=== PATIENT | female | born 1960 | race Caucasian/White ===

== ENCOUNTER 2020-05-22 13:06 | Outpatient (REF) | payer OTHER, SELFPAY ==
--- NOTE | 2020-05-22 13:07 | XR_ITS ---
EXAMINATION: XR WRIST, LEFT CLINICAL INFORMATION: Follow-up fracture COMPARISON: Previous x-rays most recent October 2018 TECHNIQUE: 3 of the left wrist. FINDINGS: There is a volar plate and screws in the left distal radius. Distal radius fracture line is no longer seen. There is a well-corticated ossification adjacent to the ulnar styloid that is new. The bones are osteopenic. XR/XR wrist LT min 3V IMPRESSION: Healed left distal radius fracture.
== END 2020-05-22 13:07 | disposition home or self-care (01) ==
LOC: HO.HOSX 13:06
PROVIDERS: Visit Provider Orthopaedic Surgery
DX: M65.319 Trigger thumb, unspecified thumb (principal); Z98.890 Other specified postprocedural states
CPT/HCPCS: 73110; 99212

== ENCOUNTER → 2020-06-14 11:35 | Outpatient (BNVA) | payer OTHER, SELFPAY | PROVIDERS: Visit Provider Orthopaedic Surgery | DX: S66.812D Strain of other specified muscles, fascia and tendons at wrist and hand level, left hand, subsequent encounter (principal) | CPT/HCPCS: 99202 ==

== ENCOUNTER 2020-07-25 14:31 | Outpatient (REF) | payer OTHER, SELFPAY ==
--- NOTE | 2020-07-25 14:35 | US_ITS ---
EXAMINATION: US NON-VASCULAR LEFT HAND CLINICAL INFORMATION: Status post ORIF distal radial fracture. Unable to move PIP joint left thumb since surgery. COMPARISON: Left hand x-ray 11/08/2018 and 05/22/2020. TECHNIQUE: Non-vascular limited ultrasound imaging of the left flexor pollicis longus was performed from the wrist to the insertion of the tendon along the proximal phalanx, proximal end 1st digit. FINDINGS: The flexor pollicis tendon is normal thickness, signal and normal movement extending from distal forearm above the plate to the PIP joint on flexion of the 1st MCP joint. Imaging of the tendon at the insertion of the proximal end proximal phalanx 1st digit, there is hypoechoic normal signal. Just proximal to the insertion, there is a very echogenic focus within the central tendon on axial image 10/09. Whether this represents a tendinous dystrophic calcification from contusion tear or scar is questioned. An intratendinous or perinephric tendon ossicle is considered less likely but not excluded. There is no flexion movement seen at the IP joint of the thumb. US/US extremity nonvascular IMPRESSION: Dystrophic echogenic non-shadowing calcification in the distal tendon just above the insertion site in proximal phalanx, question old tear, contusion or scar. Less likely intratendinous or peritendinous ossicle. Correlate with thumb x-ray.
== END 2020-07-25 14:32 | disposition home or self-care (01) ==
LOC: HO.US 14:31
PROVIDERS: PCP Internal Medicine; Visit Provider Orthopaedic Surgery
DX: S66.812A Strain of other specified muscles, fascia and tendons at wrist and hand level, left hand, initial encounter (principal)
CPT/HCPCS: 76882

== ENCOUNTER 2020-09-25 14:32 | Outpatient (REF) | payer OTHER, SELFPAY ==
--- NOTE | ~2020-09-25 | XR_ITS ---
EXAMINATION: XR HAND, LEFT CLINICAL INFORMATION: Pain left hand. COMPARISON: None TECHNIQUE: PA, lateral, and oblique views of the left hand. FINDINGS: There is diffuse mild osteopenia. No visible acute fracture or subluxation seen. There is minimal loss of DIP joint space 3rd-5th digit without periosteal erosions or periarticular spurring. The soft tissues are normal. There is old healed distal radial fracture stabilized with metallic plate and screws. Old ulnar styloid process fracture is noted as well. XR/XR hand LT min 3V IMPRESSION: Diffuse osteopenia with no acute fracture or lytic process. Mild loss of DIP joint space third through fifth digit.
== END 2020-09-25 14:33 | disposition home or self-care (01) ==
LOC: HO.HOSX 14:32
PROVIDERS: Visit Provider Orthopaedic Surgery
DX: S66.812D Strain of other specified muscles, fascia and tendons at wrist and hand level, left hand, subsequent encounter (principal)
CPT/HCPCS: 73130; 99212